=== PATIENT | female | born 1960 | race Caucasian/White ===

== ENCOUNTER 2017-05-17 08:30 | Emergency (ER) | payer BC, OTHER ==
[2017-05-17 09:23] VITALS: BP 125/69
--- NOTE | 2017-05-17 09:41 | UC ---
Respiratory Complaint HPI - HPI Summary HPI Summary: Sudden onset of cough, chills and body aches-some blood streaking in mucous this morning-did get a flu and pneumonia vaccine - History of Current Complaint Chief Complaint: UCRespiratory Stated Complaint: COUGH,CONGESTION,BACK PAIN Time Seen by Provider: 05/17/17 09:33 Hx Obtained From: Patient Hx Last Menstrual Period: 03/06/14 ?: No Onset/Duration: Sudden Onset, Lasting Days - this is the second day, Still Present Timing: Constant Severity Initially: Moderate Severity Currently: Moderate Character: Cough: Productive Alleviating Factors: Nothing Associated Signs And Symptoms: Positive: Fever, Chills, Pleuritic Chest Pain, URI, Nasal Congestion - Allergies/Home Medications Allergies/Adverse Reactions: Allergies Allergy/AdvReac Type Severity Reaction Status Date / Time Nitrofurantoin Allergy Hives Verified 05/17/17 09:17 [From Macrodantin] Penicillins Allergy Hives Verified 05/17/17 09:17 Sulfa Antibiotics Allergy Hives Verified 05/17/17 09:17 PMH/Surg Hx/FS Hx/Imm Hx Previously Healthy: No - Factor 5 Defi. Psychological History: Depression - Surgical History Surgical History: Yes Surgery Procedure, Year, and Place: uterine ablation 2011, endometriosis surgery , TMJ - Family History Known Family History: Positive: None - Social History Occupation: Employed Full-time Lives: With Family Alcohol Use: None Substance Use Type: None Smoking Status (MU): Never Smoked Tobacco - Immunization History Most Recent Influenza Vaccination: 2017 Most Recent Pneumonia Vaccination: 2016 Review of Systems Constitutional: Fever, Chills, Fatigue Skin: Negative Eyes: Negative ENT: Sore Throat, Ear Ache, Nasal Discharge, Sinus Congestion Respiratory: Cough Cardiovascular: Negative Gastrointestinal: Negative Genitourinary: Negative Motor: Negative Neurovascular: Negative Musculoskeletal: Arthralgia, Myalgia Neurological: Negative Psychological: Negative Is Patient Immunocompromised?: No All Other Systems Reviewed And Are Negative: Yes Physical Exam Triage Information Reviewed: Yes Appearance: Well-Nourished, Ill-Appearing, Pain Distress Vital Signs: Initial Vital Signs Temp 100 F 05/17/17 09:18 Pulse 75 05/17/17 09:18 Resp 16 05/17/17 09:18 BP 125/69 05/17/17 09:18 Pulse Ox 99 05/17/17 09:18 Vital Signs Reviewed: Yes Eye Exam: Normal Eyes: Positive: Conjunctiva Clear ENT Exam: Normal ENT: Positive: Normal ENT inspection, Hearing grossly normal, Pharynx normal, Nasal congestion, Nasal drainage, TMs normal, Uvula midline. Negative: Tonsillar swelling, Trismus, Muffled voice, Hoarse voice, Sinus tenderness Dental Exam: Normal Neck exam: Normal Neck: Positive: Supple, Nontender, No Lymphadenopathy Respiratory Exam: Normal Respiratory: Positive: Chest non-tender, Lungs clear, Normal breath sounds, No respiratory distress, No accessory muscle use Cardiovascular Exam: Normal Cardiovascular: Positive: RRR, No Murmur, Pulses Normal, Brisk Capillary Refill Musculoskeletal Exam: Normal Musculoskeletal: Positive: Strength Intact, ROM Intact, No Edema Neurological Exam: Normal Neurological: Positive: Alert, Muscle Tone Normal Psychological Exam: Normal Skin Exam: Normal UC Diagnostic Evaluation - Laboratory O2 Sat by Pulse Oximetry: 99 Diagnostic Studies Comment: Influenza A (+) Respiratory Course/Dx - Course Course Of Treatment: increase fluids, Tamiflu, Rest, OTC medications for symptom relief follow with pcp - Differential Dx/Diagnosis Provider Diagnoses: Influenza A Discharge - Discharge Plan Condition: Stable Disposition: HOME Prescriptions: Oseltamivir CAP* [Tamiflu CAP*] 75 mg PO BID #[id number] cap Patient Education Materials: Influenza (ED) Referrals: Selam Payan MD [Primary Care Provider] - If Needed
== END 2017-05-17 10:03 | disposition home or self-care (01) ==
LOC: UCCORT 08:30
DX: J10.1 Influenza due to other identified influenza virus with other respiratory manifestations (principal); Z88.0 Allergy status to penicillin; Z88.1 Allergy status to other antibiotic agents; Z88.2 Allergy status to sulfonamides
CPT/HCPCS: 87502; 99212; G0463